=== PATIENT | male | born 1950 | race Caucasian/White ===

== ENCOUNTER 2017-10-17 15:40 | Inpatient (IN) | payer OTHER ==
[2017-10-17] VITALS (10 sets, daily range): BP systolic 90–115; BP diastolic 56–79
[~2017-10-17] VITALS: Ht 180.3 cm; Wt 78.2 kg
[2017-10-17] MEDS ORDERED: NORVASC5 MG PO (19:35)
[2017-10-17] MEDS ORDERED: NITROSTAT0.4 MG SL (19:35)
[2017-10-17] MEDS ORDERED: LISINOPRIL20 MG PO (19:35)
[2017-10-17] MEDS ORDERED: LIPITOR20 MG PO (19:36)
[2017-10-17] MEDS ORDERED: PLAVIX75 MG PO (19:36)
[2017-10-17] MEDS ORDERED: HYDROCHLOROTHIA25 MG PO (19:37)
[2017-10-17] MEDS ORDERED: TRICOR48 MG PO (19:37)
[2017-10-17] MEDS ORDERED: ULORIC40 MG PO (19:37)
[2017-10-17] MEDS ORDERED: IMDUR30 MG PO (19:39)
[2017-10-17] MEDS ORDERED: LANTUS 3 M100 UNITS1 SC (19:39)
[2017-10-17] MEDS ORDERED: NOVOLOG100 UNIT/1 SC (19:40)
[2017-10-17 20:06] LABS: BASOPHIL COUNT 0.1 K/uL (0-0.1); EOSINOPHIL (%) 0.1 % (0-5); HEMATOCRIT 35.7 % (38.0-50.0); IMMATURE GRANULOCYTE (%) 0.8 % (0.0-0.7); IMMATURE GRANULOCYTE COUNT 0.2 K/uL; INSTRUMENT ABS NEUTROPHIL CT 22.4 K/uL; LYMPHOCYTE COUNT 1.1 K/uL (1.0-2.8); MCH 27.9 PG (29.0-34.0); MCHC 32.5 G/DL (30.0-36.0); MCV 85.8 FL (86-99); MEAN PLAT.VOLUME 10.4 uM^3 (9.0-12.4); MONOCYTE (%) 10.3 % (3-12); MONOCYTE COUNT 2.7 K/uL (0-0.8); NEUTROPHIL (%) 84.5 % (45-76); NEUTROPHIL COUNT 22.4 K/uL (1.8-6.4); PLATELET COUNT 180 K/uL (156-360); RBC DIS.WIDTH-CV 13.8 % (11.8-14.6); RBC DIS.WIDTH-SD 43.3 % (39-53); RED BLOOD COUNT 4.16 M/uL (4.00-5.50); WHITE BLOOD COUNT 26.6 K/uL (4.1-10.2)
[2017-10-17 20:22] LABS: ANION GAP 8 MEQ/L (2-14); CHLORIDE 109 MEQ/L (99-109); MAGNESIUM 1.9 mg/dl (1.3-2.7); POTASSIUM 4.7 MEQ/L (3.7-5.4); SAMPLE HEMOLYSIS CHECK 0; SAMPLE ICTERIC CHECK 0; SAMPLE LIPEMIA CHECK 0; SODIUM 134 MEQ/L (136-147)
[2017-10-17 20:28] LABS: GFR ESTIMATE (CALCULATED) 24 mL/min/ (58.99-99999); GLUCOSE 146 mg/dL (70-99); UREA NITROGEN (BUN) 49 mg/dL (9-23)
[2017-10-17 20:30] LABS: TROP-I INTERPRETATION NEGATIVE; TROPONIN-I 0.02 ng/mL (0.0-0.30)
[2017-10-17 20:49] LABS: METH RESISTANT S AUREUS PCR NEGATIVE (NEGATIVE)
[2017-10-17 20:54] LABS: PROBE CHECK PASS; SPECIMEN PROCESSING CONTROL PASS
[2017-10-17 23:42] LABS: POINT-OF-CARE METER ID UU14314083
[2017-10-18] VITALS (24 sets, daily range): BP systolic 84–154; BP diastolic 48–88
[2017-10-18 05:15] LABS: POINT-OF-CARE METER ID UU14174217
[2017-10-18 05:41] LABS: EOSINOPHIL (%) 0.3 % (0-5); EOSINOPHIL COUNT 0.1 K/uL (0-0.3); HEMATOCRIT 35.3 % (38.0-50.0); IMMATURE GRANULOCYTE (%) 0.7 % (0.0-0.7); IMMATURE GRANULOCYTE COUNT 0.2 K/uL; INSTRUMENT ABS NEUTROPHIL CT 20.9 K/uL; LYMPHOCYTE COUNT 0.7 K/uL (1.0-2.8); MCH 27.9 PG (29.0-34.0); MCHC 32.9 G/DL (30.0-36.0); MCV 84.9 FL (86-99); MEAN PLAT.VOLUME 10.9 uM^3 (9.0-12.4); MONOCYTE (%) 7.9 % (3-12); MONOCYTE COUNT 1.9 K/uL (0-0.8); NEUTROPHIL (%) 87.8 % (45-76); NEUTROPHIL COUNT 20.9 K/uL (1.8-6.4); PLATELET COUNT 197 K/uL (156-360); RBC DIS.WIDTH-CV 13.9 % (11.8-14.6); RBC DIS.WIDTH-SD 43.2 % (39-53); RED BLOOD COUNT 4.16 M/uL (4.00-5.50); WHITE BLOOD COUNT 23.8 K/uL (4.1-10.2)
[2017-10-18 05:55] LABS: TROP-I INTERPRETATION NEGATIVE; TROPONIN-I 0.03 ng/mL (0.0-0.30)
[2017-10-18 06:04] LABS: ALKALINE PHOSPHATASE 60 IU/L (3-129); ANION GAP 10 MEQ/L (2-14); CHLORIDE 108 MEQ/L (99-109); GFR ESTIMATE (CALCULATED) 24 mL/min/ (58.99-99999); GLUCOSE 176 mg/dL (70-99); POTASSIUM 4.3 MEQ/L (3.7-5.4); SAMPLE HEMOLYSIS CHECK 0; SAMPLE ICTERIC CHECK 0; SAMPLE LIPEMIA CHECK 0; SODIUM 137 MEQ/L (136-147); TOTAL BILIRUBIN 1.1 MG/DL (0.0-1.0); UREA NITROGEN (BUN) 52 mg/dL (9-23)
[2017-10-18 08:14] LABS: Estimated Average Glucose 186 mg/dL (70-123); HEMOGLOBIN A1c (GLYCOHEMOGLOB) 8.1 % HGB (Below 5.7)
[2017-10-18 10:22] LABS: INTER. NORMALIZED RATIO 1.5; PROTHROMBIN TIME 16.7 SEC (10.2-12.9)
[2017-10-18 10:25] LABS: PTT 30.3 SEC (25-37)
[2017-10-18 13:19] LABS: POINT-OF-CARE METER ID UU14174217
[2017-10-18 17:19] LABS: POINT-OF-CARE METER ID UU14174217
[2017-10-18 23:19] LABS: POINT-OF-CARE METER ID UU14174217
[2017-10-19] VITALS (24 sets, daily range): BP systolic 104–152; BP diastolic 59–88
[2017-10-19 05:25] LABS: POINT-OF-CARE METER ID UU14174217
[2017-10-19 05:52] LABS: EOSINOPHIL (%) 0 % (0-5); HEMATOCRIT 34.3 % (38.0-50.0); IMMATURE GRANULOCYTE (%) 0.6 % (0.0-0.7); IMMATURE GRANULOCYTE COUNT 0.1 K/uL; INSTRUMENT ABS NEUTROPHIL CT 14.4 K/uL; LYMPHOCYTE COUNT 0.3 K/uL (1.0-2.8); MCH 28.6 PG (29.0-34.0); MCHC 32.7 G/DL (30.0-36.0); MCV 87.5 FL (86-99); MEAN PLAT.VOLUME 11.3 uM^3 (9.0-12.4); MONOCYTE (%) 3.7 % (3-12); MONOCYTE COUNT 0.6 K/uL (0-0.8); NEUTROPHIL (%) 93.5 % (45-76); NEUTROPHIL COUNT 14.4 K/uL (1.8-6.4); PLATELET COUNT 207 K/uL (156-360); RBC DIS.WIDTH-CV 13.8 % (11.8-14.6); RED BLOOD COUNT 3.92 M/uL (4.00-5.50); WHITE BLOOD COUNT 15.4 K/uL (4.1-10.2)
[2017-10-19 06:31] LABS: ANION GAP 13 MEQ/L (2-14); CHLORIDE 109 MEQ/L (99-109); POTASSIUM 4.2 MEQ/L (3.7-5.4); SAMPLE HEMOLYSIS CHECK 0; SAMPLE ICTERIC CHECK 0; SAMPLE LIPEMIA CHECK 0; SODIUM 140 MEQ/L (136-147); UREA NITROGEN (BUN) 63 mg/dL (9-23)
[2017-10-19 06:32] LABS: ALKALINE PHOSPHATASE 219 IU/L (3-129); GFR ESTIMATE (CALCULATED) 19 mL/min/ (58.99-99999); GLUCOSE 305 mg/dL (70-99); MAGNESIUM 2.4 mg/dl (1.3-2.7); TOTAL BILIRUBIN 2.1 MG/DL (0.0-1.0)
[2017-10-19 12:26] LABS: POINT-OF-CARE METER ID UU14174217
[2017-10-19 17:19] LABS: POINT-OF-CARE METER ID UU14174217
[2017-10-20] VITALS (16 sets, daily range): BP systolic 0–144; BP diastolic 0–89
[2017-10-20 01:17] LABS: POINT-OF-CARE METER ID UU14174217
[2017-10-20 05:49] LABS: EOSINOPHIL (%) 0.1 % (0-5); HEMATOCRIT 33.9 % (38.0-50.0); IMMATURE GRANULOCYTE (%) 0.6 % (0.0-0.7); IMMATURE GRANULOCYTE COUNT 0.1 K/uL; INSTRUMENT ABS NEUTROPHIL CT 12.4 K/uL; LYMPHOCYTE COUNT 0.5 K/uL (1.0-2.8); MCH 28.2 PG (29.0-34.0); MCHC 32.4 G/DL (30.0-36.0); MCV 86.9 FL (86-99); MEAN PLAT.VOLUME 11.6 uM^3 (9.0-12.4); MONOCYTE (%) 6.7 % (3-12); MONOCYTE COUNT 0.9 K/uL (0-0.8); NEUTROPHIL (%) 88.7 % (45-76); NEUTROPHIL COUNT 12.4 K/uL (1.8-6.4); PLATELET COUNT 216 K/uL (156-360); RBC DIS.WIDTH-CV 14.2 % (11.8-14.6); RBC DIS.WIDTH-SD 45.1 % (39-53)
[2017-10-20 06:35] LABS: ANION GAP 11 MEQ/L (2-14); CHLORIDE 114 MEQ/L (99-109); GFR ESTIMATE (CALCULATED) 19 mL/min/ (58.99-99999); GLUCOSE 195 mg/dL (70-99); MAGNESIUM 2.5 mg/dl (1.3-2.7); POTASSIUM 4.7 MEQ/L (3.7-5.4); SAMPLE HEMOLYSIS CHECK 0; SAMPLE ICTERIC CHECK 0; SAMPLE LIPEMIA CHECK 0; SODIUM 145 MEQ/L (136-147); UREA NITROGEN (BUN) 70 mg/dL (9-23)
[2017-10-20 08:03] LABS: ALKALINE PHOSPHATASE 188 IU/L (3-129); DIRECT BILIRUBIN 0.4 mg/dL (0.0-0.3)
[2017-10-20 08:09] LABS: TOTAL BILIRUBIN 0.8 MG/DL (0.0-1.0)
[2017-10-20 12:19] LABS: POINT-OF-CARE METER ID UU13113803; POINT-OF-CARE USER ID 612031313
[2017-10-20 18:08] LABS: POINT-OF-CARE METER ID UU13113803; POINT-OF-CARE USER ID 612031313
[2017-10-20 22:07] LABS: POINT-OF-CARE METER ID UU13113803
[2017-10-21 03:30] VITALS: BP 141/76
[2017-10-21 06:15] LABS: EOSINOPHIL (%) 3.4 % (0-5); EOSINOPHIL COUNT 0.3 K/uL (0-0.3); HEMATOCRIT 34.4 % (38.0-50.0); IMMATURE GRANULOCYTE (%) 2.4 % (0.0-0.7); IMMATURE GRANULOCYTE COUNT 0.2 K/uL; INSTRUMENT ABS NEUTROPHIL CT 7.5 K/uL; LYMPHOCYTE COUNT 0.7 K/uL (1.0-2.8); MCH 28.4 PG (29.0-34.0); MCHC 32.8 G/DL (30.0-36.0); MCV 86.4 FL (86-99); MEAN PLAT.VOLUME 11.7 uM^3 (9.0-12.4); NEUTROPHIL (%) 76.5 % (45-76); NEUTROPHIL COUNT 7.5 K/uL (1.8-6.4); PLATELET COUNT 209 K/uL (156-360); RBC DIS.WIDTH-CV 13.8 % (11.8-14.6); RBC DIS.WIDTH-SD 43.5 % (39-53); RED BLOOD COUNT 3.98 M/uL (4.00-5.50); WHITE BLOOD COUNT 9.8 K/uL (4.1-10.2)
[2017-10-21 07:08] LABS: ALKALINE PHOSPHATASE 172 IU/L (3-129); ANION GAP 11 MEQ/L (2-14); CHLORIDE 113 MEQ/L (99-109); GFR ESTIMATE (CALCULATED) 21 mL/min/ (58.99-99999); GLUCOSE 210 mg/dL (70-99); POTASSIUM 4.3 MEQ/L (3.7-5.4); SAMPLE HEMOLYSIS CHECK 0; SAMPLE ICTERIC CHECK 0; SAMPLE LIPEMIA CHECK 0; SODIUM 143 MEQ/L (136-147); UREA NITROGEN (BUN) 63 mg/dL (9-23)
[2017-10-21 07:10] LABS: MAGNESIUM 2.1 mg/dl (1.3-2.7); TOTAL BILIRUBIN 0.6 MG/DL (0.0-1.0)
[2017-10-21 07:12] VITALS: BP 148/70
[2017-10-21 07:28] LABS: POINT-OF-CARE METER ID UU13113698
[2017-10-21 08:07] LABS: METH RESISTANT S AUREUS PCR NEGATIVE (NEGATIVE); PROBE CHECK PASS; SPECIMEN PROCESSING CONTROL PASS
[2017-10-21 10:19] LABS: POINT-OF-CARE METER ID UU13113675
[2017-10-21 11:36] VITALS: BP 119/59; BP 182/99
[2017-10-21 15:04] VITALS: BP 191/102
[2017-10-21 16:51] LABS: POINT-OF-CARE METER ID UU14314088
[2017-10-21 21:14] LABS: POINT-OF-CARE METER ID UU14314088
[2017-10-21 23:05] VITALS: BP 164/98
[2017-10-22] VITALS (7 sets, daily range): BP systolic 145–185; BP diastolic 74–101
[2017-10-22 05:22] LABS: HEMATOCRIT 37.2 % (38.0-50.0); MCH 28.1 PG (29.0-34.0); MCHC 32.5 G/DL (30.0-36.0); MCV 86.5 FL (86-99); MEAN PLAT.VOLUME 11.5 uM^3 (9.0-12.4); PLATELET COUNT 227 K/uL (156-360); RBC DIS.WIDTH-CV 14.1 % (11.8-14.6); RBC DIS.WIDTH-SD 44.8 % (39-53); WHITE BLOOD COUNT 13.1 K/uL (4.1-10.2)
[2017-10-22 06:04] LABS: ALKALINE PHOSPHATASE 146 IU/L (3-129); ANION GAP 15 MEQ/L (2-14); CHLORIDE 114 MEQ/L (99-109); GFR ESTIMATE (CALCULATED) 23 mL/min/ (58.99-99999); GLUCOSE 199 mg/dL (70-99); POTASSIUM 4.8 MEQ/L (3.7-5.4); SAMPLE HEMOLYSIS CHECK 0; SAMPLE ICTERIC CHECK 0; SAMPLE LIPEMIA CHECK 0; SODIUM 147 MEQ/L (136-147); UREA NITROGEN (BUN) 59 mg/dL (9-23)
[2017-10-22 06:06] LABS: TOTAL BILIRUBIN 0.8 MG/DL (0.0-1.0)
[2017-10-22 07:57] LABS: POINT-OF-CARE METER ID UU13113781
[2017-10-22 11:51] LABS: POINT-OF-CARE METER ID UU13113781
[2017-10-22 16:50] LABS: POINT-OF-CARE METER ID UU13113781
[2017-10-22 21:24] LABS: POINT-OF-CARE METER ID UU13113781
[2017-10-23 00:40] VITALS: BP 154/75
[2017-10-23 04:00] VITALS: BP 145/75
[2017-10-23 05:57] LABS: HEMATOCRIT 37.9 % (38.0-50.0); MCH 28.2 PG (29.0-34.0); MCHC 32.7 G/DL (30.0-36.0); MCV 86.1 FL (86-99); PLATELET COUNT 246 K/uL (156-360); RBC DIS.WIDTH-CV 14.1 % (11.8-14.6); RBC DIS.WIDTH-SD 43.9 % (39-53); WHITE BLOOD COUNT 12.9 K/uL (4.1-10.2)
[2017-10-23 06:27] LABS: ANION GAP 11 MEQ/L (2-14); CHLORIDE 110 MEQ/L (99-109); GFR ESTIMATE (CALCULATED) 28 mL/min/ (58.99-99999); GLUCOSE 118 mg/dL (70-99); MAGNESIUM 2.1 mg/dl (1.3-2.7); POTASSIUM 3.9 MEQ/L (3.7-5.4); SAMPLE HEMOLYSIS CHECK 0; SAMPLE ICTERIC CHECK 0; SAMPLE LIPEMIA CHECK 0; SODIUM 147 MEQ/L (136-147); UREA NITROGEN (BUN) 54 mg/dL (9-23)
[2017-10-23 08:15] LABS: POINT-OF-CARE METER ID UU14174216; POINT-OF-CARE USER ID NUTSLF44
[2017-10-23 09:00] VITALS: BP 181/97
[2017-10-23 11:43] LABS: POINT-OF-CARE METER ID UU14174216; POINT-OF-CARE USER ID NUTSLF44
[2017-10-23 12:00] VITALS: BP 174/88
[2017-10-23 17:00] VITALS: BP 196/100
[2017-10-23 17:18] LABS: POINT-OF-CARE METER ID UU14174216; POINT-OF-CARE USER ID NUTSLF44
[2017-10-23 18:40] LABS: POINT-OF-CARE METER ID UU14174216; POINT-OF-CARE USER ID NUTSLF44
[2017-10-23 19:42] VITALS: BP 192/90
[2017-10-23 21:10] LABS: POINT-OF-CARE METER ID UU13113698
[2017-10-24 00:10] VITALS: BP 131/76
[2017-10-24 05:30] VITALS: BP 113/72
[2017-10-24 08:01] LABS: POINT-OF-CARE METER ID UU14174216
[2017-10-24 09:07] VITALS: BP 155/84
[2017-10-24 09:57] LABS: HEMATOCRIT 44.4 % (38.0-50.0); MCH 27.3 PG (29.0-34.0); MCV 85.2 FL (86-99); MEAN PLAT.VOLUME 10.5 uM^3 (9.0-12.4); RBC DIS.WIDTH-SD 43.3 % (39-53); RED BLOOD COUNT 5.21 M/uL (4.00-5.50); WHITE BLOOD COUNT 16.7 K/uL (4.1-10.2)
[2017-10-24 10:17] LABS: ANION GAP 12 MEQ/L (2-14); CHLORIDE 104 MEQ/L (99-109); GFR ESTIMATE (CALCULATED) 25 mL/min/ (58.99-99999); GLUCOSE 142 mg/dL (70-99); POTASSIUM 3.9 MEQ/L (3.7-5.4); SAMPLE HEMOLYSIS CHECK 0; SAMPLE ICTERIC CHECK 0; SAMPLE LIPEMIA CHECK 0; SODIUM 144 MEQ/L (136-147); UREA NITROGEN (BUN) 50 mg/dL (9-23)
[2017-10-24 10:47] LABS: PLATELET COUNT 327 K/uL (156-360)
[2017-10-24 11:32] LABS: POINT-OF-CARE METER ID UU13113781
[2017-10-24 12:00] VITALS: BP 117/72; BP 125/79
[2017-10-24 16:13] LABS: POINT-OF-CARE METER ID UU14174216
[2017-10-24 19:46] VITALS: BP 140/86
[2017-10-24 21:38] LABS: POINT-OF-CARE METER ID UU14174216
[2017-10-25] VITALS (7 sets, daily range): BP systolic 124–162; BP diastolic 69–96
[2017-10-25 04:56] LABS: MCH 27.7 PG (29.0-34.0); MCHC 33.1 G/DL (30.0-36.0); MCV 83.9 FL (86-99); MEAN PLAT.VOLUME 10.8 uM^3 (9.0-12.4); PLATELET COUNT 250 K/uL (156-360); RBC DIS.WIDTH-CV 13.9 % (11.8-14.6); RED BLOOD COUNT 4.65 M/uL (4.00-5.50); WHITE BLOOD COUNT 14.2 K/uL (4.1-10.2)
[2017-10-25 08:21] LABS: POINT-OF-CARE METER ID UU14174216; POINT-OF-CARE USER ID NUTSLF44
[2017-10-25 11:52] LABS: POINT-OF-CARE METER ID UU14174216
[2017-10-25 16:17] LABS: POINT-OF-CARE METER ID UU14117124
[2017-10-25 21:45] LABS: POINT-OF-CARE METER ID UU14208753
[2017-10-26 03:31] VITALS: BP 134/79
[2017-10-26 06:39] LABS: POINT-OF-CARE METER ID UU14208753
[2017-10-26 07:02] LABS: HEMATOCRIT 42.2 % (38.0-50.0); MCH 27.2 PG (29.0-34.0); MCV 85.1 FL (86-99); MEAN PLAT.VOLUME 10.8 uM^3 (9.0-12.4); PLATELET COUNT 266 K/uL (156-360); RBC DIS.WIDTH-CV 13.9 % (11.8-14.6); RBC DIS.WIDTH-SD 42.5 % (39-53); RED BLOOD COUNT 4.96 M/uL (4.00-5.50); WHITE BLOOD COUNT 14.7 K/uL (4.1-10.2)
[2017-10-26 08:03] VITALS: BP 117/67
[2017-10-26 11:30] VITALS: BP 124/72
[2017-10-26 11:57] LABS: POINT-OF-CARE METER ID UU14208753
[2017-10-26] MEDS ORDERED: AUGMENTIN875 MG PO (13:07)
== END 2017-10-26 17:16 | disposition home or self-care (01) | DRG 418 ==
LOC: 4WEST 15:40 → ENRESERV 15:40 → 4WEST 18:39 → 4EAST 10-20 11:37 → ENRESERV 10-20 21:15 → 4EAST 10-20 22:40 → ENRESERV 10-23 16:47 → CANRESERV 10-23 16:47 → ENRESERV 10-25 13:49 → 3EAST 10-25 15:34
PROVIDERS: Physician Assistant; Radiology Diagnostic Radiology; Specialist; Surgery
DX: K81.0 Acute cholecystitis (principal); E11.22 Type 2 diabetes mellitus with diabetic chronic kidney disease; E11.649 Type 2 diabetes mellitus with hypoglycemia without coma; I25.10 Atherosclerotic heart disease of native coronary artery without angina pectoris; E66.9 Obesity, unspecified; E87.2 Acidosis; N17.9 Acute kidney failure, unspecified; D63.8 Anemia in other chronic diseases classified elsewhere; E21.3 Hyperparathyroidism, unspecified; I12.9 Hypertensive chronic kidney disease with stage 1 through stage 4 chronic kidney disease, or unspecified chronic kidney disease; C75.0 Malignant neoplasm of parathyroid gland; E11.65 Type 2 diabetes mellitus with hyperglycemia; E78.5 Hyperlipidemia, unspecified; N18.4 Chronic kidney disease, stage 4 (severe); I25.2 Old myocardial infarction; Z87.01 Personal history of pneumonia (recurrent); Z86.73 Personal history of transient ischemic attack (TIA), and cerebral infarction without residual deficits; Z87.442 Personal history of urinary calculi; Z85.858 Personal history of malignant neoplasm of other endocrine glands; Z95.1 Presence of aortocoronary bypass graft; Z79.4 Long term (current) use of insulin
CPT/HCPCS: 36600; 49405; 71010; 74176; 74300; 80048; 80053; 80076; 81003; 82803; 82948; 83036; 83605; 83735; 84100; 84484; 85025; 85027; 85610; 85730; 86850; 86900; 86901; 86920; 87070; 87075; 87086; 87205; 87641; 88304; 93005; 94010; 94640; 94640 76; 94799; 99202; C1769; J0131; J0330; J0690; J1100; J1170; J1815; J1940; J2270; J2405; J2543; J2710; J2930; J3010; J7050; S0020; S0028; S0074